=== PATIENT | male | born 1940 | race Hispanic/Latino ===

== ENCOUNTER 2024-09-07 06:41 | Emergency (ER) | payer OTHER ==
[2024-09-07 06:41] VITALS: TEMP 97.9
[2024-09-07 07:13] LABS: BASOPHILS % 0.2 % (0.0-1.0); EOSINOPHILS % 0.1 % (0.0-6.0); HEMATOCRIT 29.8 % (38.2-49.6); HEMOGLOBIN 10.5 g/dL (14.0-18.0); LYMPHOCYTES # (AUTO) 0.7 (1.0-3.2); LYMPHOCYTES % 5.9 % (18.0-39.1); MEAN CORPUSCULAR HEMOGLOBIN 32.1 pg (28-32); MEAN CORPUSCULAR HGB CONC 35.2 g/dL (31-35); MEAN CORPUSCULAR VOLUME 91.1 fL (81-99); MONOCYTES % 8.1 % (4.4-11.3); NEUTROPHILS # (AUTO) 10.1 (2.1-6.9); NEUTROPHILS % 85.4 % (38.7-80.0); PLATELET COUNT 267 x10e3/uL (140-360); RED BLOOD COUNT 3.27 x10e6/uL (4.3-5.7); RED CELL DISTRIBUTION WIDTH 14.4 % (11.7-14.4); WHITE BLOOD COUNT 11.78 x10e3/uL (4.8-10.8)
[2024-09-07 07:31] LABS: INR 1.25; PROTHROMBIN TIME 16.4 seconds (11.9-14.5)
[2024-09-07 07:32] LABS: PARTIAL THROMBOPLASTIN TIME 34.3 seconds (23.8-35.5)
[2024-09-07] MEDS: SODIUM CHLORIDE 0.9% 1000ML 1,000 ML IV STA (07:33)
[2024-09-07] MEDS ORDERED: COLLAGEN HYDROLY1 GM (07:40)
[2024-09-07] MEDS ORDERED: CYCLOSPORINE25 MG PO (07:40)
[2024-09-07 07:41] LABS: ALBUMIN 3.2 g/dL (3.5-5.0); ALBUMIN/GLOBULIN RATIO 0.9 (0.8-2.0); BILIRUBIN,TOTAL 1.1 mg/dL (0.2-1.2); CALCIUM 8.4 mg/dL (8.4-10.2); CREATININE, SERUM 2.18 mg/dL (0.72-1.25); TOTAL PROTEIN 6.6 g/dL (6.5-8.1)
[2024-09-07 07:48] LABS: TROPONIN I 0.064 ng/mL (0-0.300)
[2024-09-07 08:31] LABS: CORONAVIRUS COVID-19 AG NEGATIVE (NEGATIVE); INFLUENZA A AG NEGATIVE (NEGATIVE); INFLUENZA B AG NEGATIVE (NEGATIVE)
[2024-09-07] MEDS ORDERED: IOPAMIDOL 370 MG/ML 100 ML INFUS..BTL INJ ONE (08:41)
[2024-09-07] MEDS: ASPIRIN 81 MG CHEW TAB PO ONE (09:24)
[2024-09-07 09:31] VITALS: PULSE 62; RESP 18; O2SAT 100
== END 2024-09-07 10:25 | disposition other institution (70) ==
LOC: ER 06:45
DX: R53.1 Weakness (principal); I63.9 Cerebral infarction, unspecified; J69.0 Pneumonitis due to inhalation of food and vomit; R20.0 Anesthesia of skin; D64.9 Anemia, unspecified; N18.9 Chronic kidney disease, unspecified; Z11.52 Encounter for screening for COVID-19; R94.31 Abnormal electrocardiogram [ECG] [EKG]
CPT/HCPCS: 36415; 70450; 70496; 70498; 71045; 80053; 82948; 83735; 83880; 84484; 85025; 85610; 85730; 87040; 87428; 93005; 99284; J0456; J2543; J7030; J7050; Q9967